=== PATIENT | male | born 1935 | race Caucasian/White ===

== ENCOUNTER 2019-08-21 15:34 | Observation (INO) | payer OTHER ==
--- NOTE | 2019-08-21 15:59 | RAD REPORT ---
EXAM DESCRIPTION: RAD - Chest Single View - 08/21/2019 3:55 pm CLINICAL HISTORY: PALPITATIONS, bradycardia COMPARISON: No comparisons TECHNIQUE: AP portable chest image was obtained 08/21/2019 3:55 pm . FINDINGS: Lungs are clear. Heart and vasculature are normal. No measurable pleural effusion and no p neumothorax. No acute bony abnormality seen. No acute aortic findings suspected. IMPRESSION: No acute cardiopulmonary process.
--- NOTE | 2019-08-21 16:12 | EKG ---
Test Date: 2019-08-21 Test Time: 15:47:23 [place]ax Room Supervisor: DAFNE MEASUREMENT RESULTS: Intervals: Rate: 74 [place]: 218 QRSD: 104 QT: 414 QTc: 459 [place]: P: 53 [place]: 218 QRS: -3 T: 63 INTERPRETIVE STATEMENTS: Sinus rhythm with 1st degree AV block with frequent and consecutive premature ventricular complexes Abnormal ECG No previous ECG available for comparison Electronically Signed On 08-21-19 16:11:27 DISTRICT MANAGER POSTAL SERVICE by Juma Blanco
[2019-08-21 16:28] LABS: Absolute Lymphocytes (CBC) 1.3 K/uL (0.7-4.9); Basophils % 0.9 % (0-1.3); Hematocrit 42.3 % (39.6-49.0); RBC Red Blood Cell Count 4.32 M/uL (4.33-5.43)
[2019-08-21 16:43] LABS: BUN Blood Urea Nitrogen 17 mg/dL (7-18); Bicarbonate 27 mmol/L (21-32); Glucose Level 104 mg/dL (74-106); Magnesium 2.3 mg/dL (1.8-2.4); NT PRO-BNP 536 pg/mL (<450); Potassium 4.1 mmol/L (3.5-5.1); Sodium Level 140 mmol/L (136-145); Troponin (Emerg Dept Use Only) < 0.02 ng/mL (0.0-0.045)
[2019-08-21] MEDS ORDERED: cloNIDine HCL 0.1 MG TAB ONE (17:29)
--- NOTE | 2019-08-21 18:45 | ER ---
Nurse's Notes [facility] [place] Name: Richard Canseco Age: 84 yrs Sex: Male : 1935 Arrival Date: 08/21/2019 Time: 15:34 Bed 6 Private MD: Diagnosis: Bradycardia, unspecified;Ventricular premature depolarization;Ventricular Bigeminy Presentation: 08/21 15:34 Presenting complaint: EMS states: SENT FROM [place] FOR BRADYCARDIA, NOT RECORDED BY EMS. bp Transition of care: [place] [facility]. Onset of symptoms is unknown. Risk Assessment: Do you want to hurt yourself or someone else? Patient reports no desire to harm self or others. Initial Sepsis Screen: Does the patient meet any 2 criteria? No. Patient's initial sepsis screen is negative. Does the patient have a suspected source of infection? No. Patient's initial sepsis screen is negative. Care prior to arrival: None. 15:34 Method Of Arrival: EMS: [facility] bp 15:34 Acuity: ANTONIO 3 bp Triage Assessment: 15:42 General: Appears in no apparent distress. comfortable, obese, Behavior is cooperative, bp appropriate for age, anxious. Pain: Denies pain. EENT: No deficits noted. Neuro: No deficits noted. Cardiovascular: Rhythm is sinus rhythm. Respiratory: No deficits noted. GI: No signs and/or symptoms were reported involving the gastrointestinal system. : No deficits noted. Derm: No deficits noted. Musculoskeletal: No deficits noted. Circulation, motion, and sensation intact. Range of motion:. Historical: - Allergies: 15:42 No Known Allergies; bp - Home Meds: 15:42 finasteride 5 mg oral tab 1 tab once daily [Active]; levothyroxine 200 mcg tab 1 tab bp once daily [Active]; trazodone 50 mg Oral tab 1 tab nightly [Active]; clonidine HCl 0.1 mg Oral tab 1 tab 2 times per day [Active]; gabapentin 400 mg oral cap 1 cap 3 times per day [Active]; verapamil 240 mg Oral C24P 1 cap twice a day [Active]; - PMHx: 15:42 Thyroid problem; Depression; Anxiety; GERD; Hypertension; bp - Immunization history:: Adult Immunizations up to date. - Coronavirus screen:: The patient has NOT traveled to [place], [place], or [place] in the past 14 days. The patient has NOT had contact with known/suspected case of Coronavirus? Proceed with normal triage procedures. - Social history:: Smoking status: Patient denies any tobacco usage or history of. - Family history:: not pertinent. - Ebola Screening: : No symptoms or risks identified at this time. - Hospitalizations: : No recent hospitalization is reported. Screenin:51 Abuse screen: Denies threats or abuse. Denies injuries from another. Nutritional bp screening: No deficits noted. Tuberculosis screening: No symptoms or risk factors identified. Fall Risk None identified. Assessment: 15:42 General: SEE TRIAGE NOTE. bp 17:00 Reassessment: PT REMAINS ASYMPTOMATIC, LABS IN PROCESS. bp 18:00 Reassessment: REPEAT EKG COMPLETED. INCREASED PVC NOTED ON MONITOR BUT PT DENIES ACUTE bp S/S. RESULTS PENDING FOR DISPO. NO NOTED IMPROVEMENT IN PT HTN AFTER CLONIDINE ADMIN. 18:40 Reassessment: ADMIT INITIATED FOR TELE. bp 19:34 General: Appears in no apparent distress. comfortable, Behavior is calm, cooperative, jd3 appropriate for age. Pain: Denies pain. Neuro: Level of Consciousness is awake, alert, obeys commands, Oriented to person, place, time, situation. Cardiovascular: Denies chest pain, Capillary refill < 3 seconds Patient's skin is warm and dry. Rhythm is irregular. Respiratory: Airway is patent Respiratory effort is even, unlabored, Respiratory pattern is regular, symmetrical, Denies cough, shortness of breath. GI: No signs and/or symptoms were reported involving the gastrointestinal system. Patient currently denies diarrhea, nausea, vomiting. : No signs and/or symptoms were reported regarding the genitourinary system. EENT: No signs and/or symptoms were reported regarding the EENT system. Derm: Skin is intact, Skin is dry, Skin is normal, Skin temperature is warm. Musculoskeletal: Circulation, motion, and sensation intact. Range of motion: intact in all extremities. 19:34 Reassessment: awaiting room assignment for admission. jd3 20:20 Reassessment: Patient appears in no apparent distress at this time. Patient and/or jd3 family updated on plan of care and expected duration. Pain level reassessed. Patient is alert, oriented x 3, equal unlabored respirations, skin warm/dry/pink. Patient denies pain at this time. Vital Signs: 15:42 BP 180 / 96; Pulse 73; Resp 27; Temp 98; Pulse Ox 95% ; Weight 113.4 kg; Height 6 ft. 2 bp in. (187.96 cm); 16:07 BP 161 / 86; Pulse 70; Resp 23; Pulse Ox 95% ; bp 17:11 BP 160 / 86; Pulse 92; Resp 18; Pulse Ox 96% ; bp 18:00 BP 145 / 83; Pulse 69; Resp 11; Pulse Ox 99% ; bp 18:30 BP 177 / 69; Pulse 75; Resp 17; Pulse Ox 99% ; bp 19:25 BP 180 / 73; Pulse 74; Resp 18 S; Pulse Ox 98% on R/A; Pain 0/10; jd3 15:42 Body Mass Index 32.10 (113.40 kg, 187.96 cm) bp ED Course: 15:34 Patient arrived in ED. bp 15:35 Triage completed. bp 15:36 Dc Vargas MD is Attending Physician. rn 15:42 Arm band placed on. bp 15:51 Patient has correct armband on for positive identification. Call light in reach. Side bp rails up X2. Adult w/ patient. 15:55 XRAY Chest (1 view) In Process Unspecified. EDMS 15:57 EKG done, by radiologic technology instructor. reviewed by Dc Vargas MD. at1 16:07 Jose Doyle, RN is Primary Nurse. bp 16:10 Inserted saline lock: 20 gauge in right antecubital area, using aseptic technique. bp Blood collected. 17:22 EKG done, by ED staff, reviewed by Dc Vargas MD. aa5 18:28 attempted transfer to [facility], pt denied due to no beds at this time, per Linda Brown. 18:38 Coco Montes MD is Hospitalizing Provider. rn 20:19 No provider procedures requiring assistance completed. Patient admitted, IV remains in jd3 place. Administered Medications: 17:23 Drug: cloNIDine 0.1 mg Route: PO; bp 18:39 Follow up: Response: No adverse reaction bp Outcome: 18:41 Decision to Hospitalize by Provider. rn 20:19 Admitted to Tele accompanied by tech, via wheelchair, room 422, with chart, Report jd3 called to Velma SALAZAR 20:19 Condition: stable 20:19 Instructed on the need for admit, Demonstrated understanding of instructions. 20:20 Patient left the ED. jd3 Signatures: Dispatcher [employer] EDMS Elizabet Gamble Roman, MD MD rn Calderon, Audri, RN RN [email or web address] Amanda Loja, marketer EKG Tat1 Fredrick Diaz RN RN Jose Ryan RN RN bp Corrections: (The following items were deleted from the chart) 18:40 18:00 Reassessment: REPEAT EKG COMPLETED. INCREASED PVC NOTED ON MONITOR BUT PT DENIES bp ACUTE S/S. RESULTS PENDING FOR DISPO bp 18:42 18:00 BP 177 / 69; Pulse 75bpm; Resp 17bpm; Pulse Ox 99%; bp bp
--- NOTE | 2019-08-21 18:48 | EDPHYS ---
Physician Documentation [facility] Name: Richard Canseco Age: 84 yrs Sex: Male : 1935 Arrival Date: 08/21/2019 Time: 15:34 Bed 6 Private MD: ED Physician Dc Vargas HPI: 08/21 16:32 This 84 yrs old Male presents to ER via EMS with complaints of bradycardia. rn 16:32 Sent from clinic for bradycardia, patient states feels fine, asymptomatic, reports his rn monitor at home showed low heart rate so didn't take BP med today, in clinic showed HR in 30s, EMS reports upon arrival was in 30s on monitor but ECG showed HR in 70s with frequent PVCs. No syncope/chest pain/sob. . Severity of symptoms:. The patient has not experienced similar symptoms in the past. The patient has been recently seen by a physician:. Historical: - Allergies: 15:42 No Known Allergies; bp - Home Meds: 15:42 finasteride 5 mg oral tab 1 tab once daily [Active]; levothyroxine 200 mcg tab 1 tab bp once daily [Active]; trazodone 50 mg Oral tab 1 tab nightly [Active]; clonidine HCl 0.1 mg Oral tab 1 tab 2 times per day [Active]; gabapentin 400 mg oral cap 1 cap 3 times per day [Active]; verapamil 240 mg Oral C24P 1 cap twice a day [Active]; - PMHx: 15:42 Thyroid problem; Depression; Anxiety; GERD; Hypertension; bp - Immunization history:: Adult Immunizations up to date. - Coronavirus screen:: The patient has NOT traveled to [place], [place], or [place] in the past 14 days. The patient has NOT had contact with known/suspected case of Coronavirus? Proceed with normal triage procedures. - Social history:: Smoking status: Patient denies any tobacco usage or history of. - Family history:: not pertinent. - Ebola Screening: : No symptoms or risks identified at this time. - Hospitalizations: : No recent hospitalization is reported. ROS: 16:32 Constitutional: Negative for fever, chills, and weight loss, Eyes: Negative for injury, rn pain, redness, and discharge, Neck: Negative for injury, pain, and swelling, Cardiovascular: Negative for chest pain, palpitations, and edema, Respiratory: Negative for shortness of breath, cough, wheezing, and pleuritic chest pain, Abdomen/GI: Negative for abdominal pain, nausea, vomiting, diarrhea, and constipation, MS/Extremity: Negative for injury and deformity, Skin: Negative for injury, rash, and discoloration, Neuro: Negative for headache, weakness, numbness, tingling, and seizure. Exam: 16:32 Constitutional: This is a well developed, well nourished patient who is awake, alert, rn and in no acute distress. Head/Face: Normocephalic, atraumatic. Eyes: Pupils equal round and reactive to light, extra-ocular motions intact. Lids and lashes normal. Conjunctiva and sclera are non-icteric and not injected. Cornea within normal limits. Periorbital areas with no swelling, redness, or edema. Cardiovascular: Regular rate, irregular rhythm. No pulse deficits. Respiratory: No increased work of breathing, no retractions or nasal flaring. Abdomen/GI: soft, non-tender MS/ Extremity: Pulses equal, no cyanosis. Neurovascular intact. Full, normal range of motion. Equal circumference. Neuro: Awake and alert, GCS 15, oriented to person, place, time, and situation. Motor strength 5/5 in all extremities. Sensory grossly intact. Cerebellar exam normal. Vital Signs: 15:42 BP 180 / 96; Pulse 73; Resp 27; Temp 98; Pulse Ox 95% ; Weight 113.4 kg; Height 6 ft. 2 bp in. (187.96 cm); 16:07 BP 161 / 86; Pulse 70; Resp 23; Pulse Ox 95% ; bp 17:11 BP 160 / 86; Pulse 92; Resp 18; Pulse Ox 96% ; bp 18:00 BP 145 / 83; Pulse 69; Resp 11; Pulse Ox 99% ; bp 18:30 BP 177 / 69; Pulse 75; Resp 17; Pulse Ox 99% ; bp 19:25 BP 180 / 73; Pulse 74; Resp 18 S; Pulse Ox 98% on R/A; Pain 0/10; jd3 15:42 Body Mass Index 32.10 (113.40 kg, 187.96 cm) bp MDM: 15:36 Patient medically screened. rn 17:38 Differential Diagnosis bradycardia. rn 18:37 Data reviewed: vital signs, nurses notes, lab test result(s), EKG, radiologic studies, rn plain films, and as a result, I will admit patient. Counseling: I had a detailed discussion with the patient and/or guardian regarding: the historical points, exam findings, and any diagnostic results supporting the discharge/admit diagnosis, lab results, radiology results, the need for further work-up and treatment in the hospital. Response to treatment: the patient's symptoms have mildly improved after treatment, and as a result, I will admit patient. Admission orders: after a detailed discussion of the patient's condition and case, the admit orders are written by me. ED course: No beds available for transfer to [place]. Admitted to Dr. Montes for bradycardia and bigeminy. . 08/21 15:42 Order name: Basic Metabolic Panel; Complete Time: 17:08/21 15:42 Order name: CBC with Diff; Complete Time: 17:11 08/21 15:42 Order name: Magnesium; Complete Time: 17:08/21 15:42 Order name: NT PRO-BNP; Complete Time: 17:08/21 15:42 Order name: Troponin (emerg Dept Use Only); Complete Time: 17:08/21 15:42 Order name: XRAY Chest (1 view); Complete Time: 16:02 rn 08/21 15:42 Order name: EKG; Complete Time: 15:43 rn 08/21 15:42 Order name: Cardiac monitoring; Complete Time: 15:55 rn 08/21 15:42 Order name: EKG - Nurse/Tech; Complete Time: 15:55 08/21 15:42 Order name: IV Saline Lock; Complete Time: 15:57 08/21 15:42 Order name: Labs collected and sent; Complete Time: 15:55 08/21 15:42 Order name: O2 Per Protocol; Complete Time: 15:58 08/21 17:12 Order name: EKG; Complete Time: 17:12 rn 08/21 15:42 Order name: O2 Sat Monitoring; Complete Time: 15:58 08/21 17:12 Order name: EKG - Nurse/Tech; Complete Time: 17:24 rn Administered Medications: 17:23 Drug: cloNIDine 0.1 mg Route: PO; bp 18:39 Follow up: Response: No adverse reaction bp Disposition: 08/21/19 18:41 Hospitalization ordered by Coco Montes for Observation. Preliminary diagnosis are Bradycardia, unspecified, Ventricular premature depolarization, Ventricular Bigeminy. - Bed requested for Telemetry/MedSurg (observation). - Status is Observation. jd3 - Condition is Stable. - Problem is new. - Symptoms have improved. Signatures: Dispatcher [employer] EDMS Zaira Monreal RN RN mw Dc Vargas MD MD rn Davies, Jonathon, RN RN jd3 Peltier, Brian, RN RN bp Corrections: (The following items were deleted from the chart) 19:33 18:41 Hospitalization Ordered by Coco Montes MD for Observation. Preliminary diagnosis mw is Bradycardia, unspecified; Ventricular premature depolarization; Ventricular Bigeminy. Bed requested for Telemetry/MedSurg (observation). Status is Observation. Condition is Stable. Problem is new. Symptoms have improved. rn 20:20 19:33 08/21/2019 18:41 Hospitalization Ordered by Coco Montes MD for Observation. jd3 Preliminary diagnosis is Bradycardia, unspecified; Ventricular premature depolarization; Ventricular Bigeminy. Bed requested for Telemetry/MedSurg (observation). Status is Observation. Condition is Stable. Problem is new. Symptoms have improved. kristen
[2019-08-21] MEDS ORDERED: NA CHLORIDE 0.9% 1,000 ML IV SCH (20:29)
[2019-08-21] MEDS ORDERED: ACETAMINOPHEN 500 MG TAB PO PRN (20:29)
--- NOTE | 2019-08-21 20:32 | P.HP ---
Certification for Inpatient Patient admitted to: Observation With expected LOS: <2 Midnights Practitioner: I am a practitioner with admitting privileges, knowledge of patient current condition, hospital course, and medical plan of care. Services: Services provided to patient in accordance with Admission requirements found in Title 42 Section 412.3 of the Code of Federal Regulations Patient History Date of Service: 08/21/19 Reason for admission: Abnormal heart rhythm History of Present Illness: 84-year-old gentleman with a history of hypertension, hypothyroidism, BPH was referred to the emergency department for bradycardia and bigeminy noted on this EKG done in his PCPs office today. Patient denies any complain. He denied any palpitation or shortness of breath or chest pain. He is on verapamil and clonidine for blood pressure. He apparently noted his heart slows down when he takes his blood pressure medications. His systolic blood pressure was quite elevated in the ED, up to the 180s and it did not respond much to oral clonidine. His EKG reveals bigeminy and first- degree AV block. Patient is placed under observation for further evaluation. Allergies No Known Allergies Allergy (Unverified 08/21/19 19:34) Home Medications: Finasteride [Proscar*] 5 mg PO DAILY 08/21/19 Fluticasone Furoate [Arnuity Ellipta] 50 mcg IH BID 08/21/19 Gabapentin [Neurontin*] 400 mg PO TID 08/21/19 Levothyroxine Sodium [Synthroid] 200 mcg PO DAILY 08/21/19 Multivitamin [Multivitamins] 1 each PO DAILY 08/21/19 Trazodone HCl 50 mg PO BEDTIME PRN PRN 08/21/19 guaiFENesin [Mucus Relief ER] 600 mg PO Q12HP PRN 08/21/19 Amlodipine [Norvasc*] 10 mg PO DAILY #30 tab 08/22/19 Doxazosin [Cardura*] 2 mg PO BEDTIME #30 tab 08/22/19 - Past Medical/Surgical History -: Back pain -: Hypertension -: Hypothyroidism -: Depressive disorder -: Hearing loss -: Anxiety disorder -: Hypercholesterolemia -: GERD -: Faust's palsy -: Hypothyroidism -: BPH -: Peripheral neuropathy - Family History Family History: Reviewed- Non-Contributory - Family History Father -: Heart disease Mother -: Heart disease - Social History Alcohol use: No CD- Drugs: No Place of Residence: Home Review of Systems Other: General: No fever, no malaise, no unintentional weight loss. Eyes: No eye discharge, Respiratory: No cough, no shortness of breath. CVS: No chest pain, no palpitation, no lightheadedness. GI: No abdominal pain, no nausea no vomit, no constipation, no diarrhea. Genitourinary: No dysuria, no urinary frequency, no incontinence, no hematuria. Musculoskeletal: No joint pains, or joint swelling, no gait instability. Neurology: No headache, no asymmetric weakness, no problem with swallowing. Except as documented, all other systems reviewed and negative. Physical Examination - Physical Exam General: Alert, In no apparent distress, Oriented x3 HEENT: PERRLA, Mucous membr. moist/pink, EOMI, Sclerae nonicteric Neck: Supple, JVD not distended, No Thyromegaly Respiratory: Clear to auscultation bilaterally, Normal air movement Cardiovascular: No edema, Normal S1 S2, Other (Bradycardia), Irregular heart rate/rhythm Gastrointestinal: Normal bowel sounds, Soft and benign, Non-distended, No tenderness Musculoskeletal: No swelling, No erythema Integumentary: No rashes, No erythema Neurological: Normal speech, Normal strength at 5/5 x4 extr - Studies Laboratory Data (last 24 hrs) 08/21/19 16:10: WBC 5.7, Hgb 14.3, Hct 42.3, Plt Count 210 08/21/19 16:10: Sodium 140, Potassium 4.1, BUN 17, Creatinine 1.16, Glucose 104 , Magnesium 2.3 Assessment and Plan - Problems (Diagnosis) (1) Uncontrolled hypertension Status: Acute (2) Bradycardia Status: Acute (3) PVCs (premature ventricular contractions) Status: Acute (4) Hypothyroidism Status: Chronic - Plan Place patient under observation. Replace verapamil with amlodipine Hold clonidine given bradycardia. Low-dose metoprolol Hydralazine p.r.n. for BP spikes. Obtain an echocardiogram Cardiology consult Check TSH Continue home dose Synthroid - Advance Directives Does patient have a Living Will: No Does patient have a Durable POA for Healthcare: No
[2019-08-21] MEDS ORDERED: HYDRALAZINE HCL 20 MG/ML VIAL IV PRN (20:48)
[2019-08-21 21:47] VITALS: BMI 32.1
[2019-08-21] MEDS ORDERED: TRAZODONE 50 MG TABLET PO PRN (22:02)
[2019-08-21] MEDS ORDERED: GUAIFENESIN 600 MG SA TAB PO PRN (22:02)
[2019-08-21] MEDS: METOPROLOL TAR 25 MG TAB PO SCH (22:07)
[2019-08-21] MEDS: GABAPENTIN 400 MG CAP PO SCH (23:02)
[2019-08-22 04:20] LABS: Absolute Lymphocytes (CBC) 2.2 K/uL (0.7-4.9); Basophils % 0.9 % (0-1.3); Hematocrit 41.3 % (39.6-49.0); Lymphocytes % 30.5 % (15.3-44.8); MPV 9.9 fL (7.6-11.3); RBC Red Blood Cell Count 4.24 M/uL (4.33-5.43)
[2019-08-22 04:28] VITALS: O2SAT 95
[2019-08-22 05:09] LABS: Albumin 3.1 g/dL (3.4-5.0); Bilirubin Total 0.5 mg/dL (0.2-1.0); Magnesium 2.2 mg/dL (1.8-2.4); Phosphorus 3.7 mg/dL (2.5-4.9); Potassium 4.4 mmol/L (3.5-5.1); Protein, Total 6.2 g/dL (6.4-8.2); Thyroid Stimulating Hormone 3.24 uIU/mL (0.360-3.740)
[2019-08-22] MEDS: METOPROLOL TAR 25 MG TAB PO SCH (06:00)
[2019-08-22] MEDS ORDERED: LEVOTHYROXINE SOD 0.1 MG TAB PO SCH (07:30)
[2019-08-22] MEDS ORDERED: DOXAZOSIN 2 MG TAB PO ONE (07:49)
[2019-08-22 08:07] VITALS: TEMP 97.1
[2019-08-22] MEDS ORDERED: FINASTERIDE 5 MG TAB PO SCH (09:00)
[2019-08-22] MEDS ORDERED: AMLODIPINE 10 MG TAB PO SCH (09:00)
[2019-08-22] MEDS ORDERED: FLUTICASONE FUROATE 50 MCG IH SCH (09:00)
[2019-08-22] MEDS ORDERED: ENOXAPARIN 40 MG/0.4 ML SQ SCH (09:00)
[2019-08-22] MEDS ORDERED: MULTIVIT W/ MINERAL TAB PO SCH (09:00)
--- NOTE | 2019-08-22 09:11 | EKG ---
Test Date: 2019-08-21 Test Time: 17:19:31 [place] Operator: USHA MEASUREMENT RESULTS: Intervals: Rate: 81 NV: 210 QRSD: 102 QT: 398 QTc: 462 [place]: P: 49 NV: 210 QRS: 8 T: 61 INTERPRETIVE STATEMENTS: Sinus rhythm with 1st degree AV block with frequent premature ventricular complexes in a pattern of bigeminy Otherwise normal ECG Compared to ECG 08/21/2019 15:47:23 No significant changes Electronically Signed On 08-22-19 09:11:33 CHIEF SALES OFFICER by Juma Blanco
[2019-08-22] MEDS: GABAPENTIN 400 MG CAP PO SCH (10:45)
--- NOTE | 2019-08-22 11:56 | ECHO ---
HEIGHT: 6 ft 2 in WEIGHT: 250 lb 0 oz DATE OF STUDY: 08/22/[address]: johnathon flores 2-DIMENSIONAL: YES M.MODE: YES DOPPLER: YES COLOR FLOW: YES TDS: NO PORTABLE: NO DEFINITY: NO BUBBLE STUDY: NO DIAGNOSIS: PREMATURE VENTRICULAR COMPLEXES CARDIAC HISTORY: CATHERIZATION: NO SURGERY: NO PROSTHETIC VALVE: NO PACEMAKER: NO MEASUREMENTS (cm) DIASTOLIC (NORMALS) SYSTOLIC (NORMALS) IVSd 1.2 (0.6-1.2) LA Diam 3.7 (1.9-4.0) LVEF 68% LVIDd 4.7 (3.5-5.7) LVIDs 2.9 (2.0-3.5) %FS 38% LVPWd 1.0 (0.6-1.2) Ao Diam 3.1 (2.0-3.7) 2 DIMENSIONAL ASSESSMENT: RIGHT ATRIUM: NORMAL LEFT ATRIUM: NORMAL RIGHT VENTRICLE: NORMAL LEFT VENTRICLE: NORMAL TRICUSPID VALVE: NORMAL MITRAL VALVE: NORMAL PULMONIC VALVE: NORMAL AORTIC VALVE: SCLEROSIS PERICARDIAL EFFUSION: NONE AORTIC ROOT: NORMAL LEFT VENTRICULAR WALL MOTION: NORMAL. DOPPLER/COLOR FLOW: MILD AORTIC, MITRAL AND TRICUSPID REGURGITATION. NORMAL RIGHT VENTRICULAR SYSTOLIC PRESSURE. NO AORTIC STENOSIS. COMMENTS: NORMAL LEFT VENTRICULAR EJECTION FRACTION. AORTIC SCLEROSIS WITH NO AORTIC STENOSIS. MILD AORTIC, MITRAL AND TRICUSPID REGURGITATION. TECHNOLOGIST: MIREILLE LAU
--- NOTE | 2019-08-22 12:10 | CON ---
Identification: 84-year-old man. History Of Present Illness: Mr. Canseco has been treated for hypertension for some time. The doctors at the [facility] have been changing medicines just about every time they see him. 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 Throughout all that, he does not have any symptoms of arrhythmia, but the [facility] sent him to our hospital because he had frequent PVCs and his heart rate was rather slow. Outpatient Medications: Had been verapamil, trazodone, multivitamin, levothyroxine, gabapentin, Arnuity, finasteride, clonidine, and guaifenesin. Physical Examination: General: Mr. Canseco is alert, oriented, pleasant, not in distress, little hard of hearing. 6 feet 2 inches, 250 pounds, obese. Lungs: Clear. Heart: Within normal limits, although there are frequent premature beats with a full compensatory pause. Abdomen: Soft. Extremities: Trace edema. Distal pulses palpable but diminished. The patient does not have diabetes, dyslipidemia, never had myocardial infarction, stroke, vascular disease, not having chest pain, shortness of breath , syncope, palpitations, or any other cardiac symptoms. His EKG shows sinus rhythm with frequent PVCs. No infarction, injury, or ischemia. Impression: The premature ventricular contractions, if he has normal ejection fraction, should be ignored. There has been no ventricular tachycardia. He is asymptomatic. Our blood pressure medicine selection always should be focused on things that do not slow his heart rate. He has sinus node dysfunction and may well end up needing a pacemaker, but I think if we avoid verapamil, diltiazem, clonidine, beta blockers, digoxin, he probably can go a few years without getting a pacemaker. I would think that a combination of amlodipine with an alpha erin might do good such as amlodipine and Cardura. He does not need IV fluid and if his echo shows normal ejection fraction he can be discharged. BECKY/QASIM Voice ID: [id number] Report ID: [id number] MTDD
[2019-08-22 12:22] VITALS: BP 133/62
--- NOTE | 2019-08-23 02:53 | DS ---
Date of Discharge: 08/22/2019 Consultants: Dr. Blanco with Cardiology . Discharge Diagnoses: 1.Uncontrolled hypertension. 2.Bradycardia. 3.Premature ventricular contractions. 4.Hypothyroidism. 5.Obesity. Hospital Course: Patient is an 84-year-old male with past medical history of hypertension, hypothyro idism, depression, hypercholesterolemia, GERD, Faust's palsy, comes in with abnormal heart rhythms dir ectly from the [facility]. They noted his heart rate to be in the 30s in the ER and at our facility negin loyola was found to be in bigeminy and have PVCs. Patient was admitted for further observation. Dr. Blanco was consulted. The patient's workup included electrolytes that were within normal limits. T SH was also normal. His white blood cell count was also within normal limits. Echocardiogram was do ne, which showed an ejection fraction of 68%, aortic sclerosis with no aortic stenosis mild aortic mi tral and tricuspid regurgitation. The patient's chest x-ray showed no acute cardiopulmonary process. The patient's blood pressure medications were adjusted. He was taken off clonidine and verapamil d ue to the bradycardia, was started on Cardura and amlodipine. The patient's blood pressure responded well despite rebounding was in the 130s when he was discharged. Patient denies any dizziness, light headedness, or any syncopal type episodes. No chest pain or shortness of breath. Dr. Blanco recomme nded follow up as an outpatient for continued monitoring. He may eventually need a pacemaker however at this time is not indicated. Patient was doing well, he was then cleared for discharge. His echo cardiogram was within normal limits as above. He was discharged home in a stable condition. Activity: As tolerated. Medications: As per medication reconciliation list. Patient is to stop his verapamil and clonidine. Will be on amlodipine and Cardura. Followup: Follow up with primary care physician at the [facility] in 2-3 days, follow up with burning machine operator, Dr. Blanco in 2 weeks. Return to ER for worsening condition. Physical Examination: General: Awake, alert, and oriented x3. No acute distress, obese male. CV: S1, S2. Respiratory: Moving air well bilaterally. Abdomen: Abdomen is soft, nontender, nondistended. Positive bowel sounds. Extremities: No clubbing, cyanosis, edema. Neurologic: Nonfocal. SA/MODL Voice ID: [id number] Report ID: [id number]
== END 2019-08-22 13:55 | disposition home or self-care (01) ==
LOC: ER 15:34 → ERHOLD 18:30 → 4TH 20:02
PROVIDERS: ADMIT Family Medicine; ATTEND Family Medicine
DX: I49.3 Ventricular premature depolarization (principal); R00.1 Bradycardia, unspecified; I10 Essential (primary) hypertension; E03.9 Hypothyroidism, unspecified; N40.0 Benign prostatic hyperplasia without lower urinary tract symptoms; F41.9 Anxiety disorder, unspecified; E78.00 Pure hypercholesterolemia, unspecified; G51.0 Bell's palsy; G62.9 Polyneuropathy, unspecified; E66.9 Obesity, unspecified; Z68.32 Body mass index [BMI] 32.0-32.9, adult
CPT/HCPCS: 93005 ×2; 93306; 85025 ×2; 80048; 36415; 83735 ×2; 84100; 84443; 84484; 80053; 83880; 71045; 94760; 99285; J1650; J7030; G0378 ×3

== ENCOUNTER 2020-06-22 09:53 | Observation (INO) | payer OTHER ==
[2020-06-22] MEDS ORDERED: NA CHLORIDE 0.9% 0 ML ONE (10:18)
[2020-06-22] MEDS ORDERED: NA CHLORIDE 0.9% 500 ML ONE (10:21)
[2020-06-22 10:39] LABS: Absolute Lymphocytes (CBC) 0.9 K/uL (0.7-4.9); Basophils % 0.8 % (0-1.3); Hematocrit 45.9 % (39.6-49.0); MPV 8.7 fL (7.6-11.3); RBC Red Blood Cell Count 4.84 M/uL (4.33-5.43)
--- NOTE | 2020-06-22 11:27 | RAD REPORT ---
EXAM DESCRIPTION: RAD - Chest Single View - 06/22/2020 10:38 am CLINICAL HISTORY: COVID + Chest pain. COMPARISON: Chest Single View dated 08/21/2019 FINDINGS: Portable technique limits examination quality. Mild interstitial opacities are seen along the periphery of both lungs suggesting mild bilateral bron chitis. The heart is moderately prominent in size with a tortuous thoracic aorta. No displaced fractu res.
[2020-06-22 12:36] LABS: CKMB Creatine Kinase MB 1.8 ng/mL (0.3-3.6); Potassium 3.6 mmol/L (3.5-5.1)
[2020-06-22 12:47] LABS: Urine Bacteria <20 /HPF (NONE SEEN); Urine RBC <5 /HPF (NONE SEEN)
[2020-06-22 12:47] LABS: Urine Blood NEGATIVE (NEG); Urine Glucose NEGATIVE (NEG); Urine Protein NEGATIVE (NEG); Urine pH 7.5 (5.0-7.0)
[2020-06-22 12:48] LABS: Urine Mucus 1+ /HPF (NONE SEEN)
--- NOTE | 2020-06-22 13:13 | EDPHYS ---
Physician Documentation [facility] Name: Jared Canseco Age: 85 yrs Sex: Male : 1935 Arrival Date: 06/22/2020 Time: 09:56 Bed 20 Private MD: ED Physician Dc Vargas HPI: 06/22 11:31 This 85 yrs old Male presents to ER via Wheelchair with complaints of Urinary rn Problem. 11:31 Reports decreased urinary output, feels like might be dehydrated, + diagnosed with rn COVID on Tuesday. Reports no PO intake today. No focal pain, no vomiting, no diarrhea. No sob. . Onset: The symptoms/episode began/occurred at an unknown time. Severity of symptoms: At their worst the symptoms were mild in the emergency department the symptoms are unchanged. The patient has not experienced similar symptoms in the past. The patient has been recently seen by a physician:. Historical: - Allergies: 10:00 No Known Allergies; sv - PMHx: 10:00 Anxiety; Depression; GERD; Hypertension; Thyroid problem; sv - Immunization history:: Adult Immunizations up to date. - Social history:: Smoking status: Patient denies any tobacco usage or history of. - Family history:: not pertinent. - Hospitalizations: : No recent hospitalization is reported. ROS: 11:31 Constitutional: Negative for fever, chills, and weight loss, Eyes: Negative for injury, rn pain, redness, and discharge, Neck: Negative for injury, pain, and swelling, Cardiovascular: Negative for chest pain, palpitations, and edema, Respiratory: Negative for wheezing, and pleuritic chest pain, Abdomen/GI: Negative for abdominal pain, nausea, vomiting, diarrhea, and constipation, : + decreased UOP MS/Extremity: Negative for injury and deformity, Skin: Negative for injury, rash, and discoloration, Neuro: Negative for headache, numbness, tingling, and seizure. Exam: 11:31 Constitutional: This is a well developed, well nourished patient who is awake, alert, rn and in no acute distress. Head/Face: Normocephalic, atraumatic. ENT: dry MM Neck: No Meningismus. Cardiovascular: Regular rate and rhythm. No pulse deficits. Respiratory: Mild tachypnea Abdomen/GI: soft, non-tender Skin: Warm, dry, + tenting of skin MS/ Extremity: Pulses equal, no cyanosis. Neuro: Awake and alert, GCS 15 Vital Signs: 09:59 BP 136 / 85; Pulse 91; Resp 26; Pulse Ox 95% ; Pain 0/10; ss 10:33 BP 128 / 71; Pulse 85; Resp 24; Temp 98; Pulse Ox 96% on R/A; sv 11:13 BP 113 / 83; Pulse 95; Resp 25; Pulse Ox 97% on R/A; sv 12:12 BP 125 / 94; Pulse 64; Resp 20; Pulse Ox 97% on R/A; sv 13:00 BP 122 / 89; Pulse 75; Resp 25; Pulse Ox 96% on R/A; sv 14:00 BP 136 / 87; Pulse 87; Resp 24; Pulse Ox 95% on R/A; sv MDM: 09:57 Patient medically screened. rn 13:09 Differential Diagnosis dehydration, COVID pneumonia, acute kidney injury. Data rn reviewed: vital signs, nurses notes, lab test result(s), radiologic studies, plain films, and as a result, I will admit patient. Counseling: I had a detailed discussion with the patient and/or guardian regarding: the historical points, exam findings, and any diagnostic results supporting the discharge/admit diagnosis, lab results, radiology results, the need for further work-up and treatment in the hospital. Response to treatment: the patient's symptoms have mildly improved after treatment, and as a result, I will admit patient. Admission orders: after a detailed discussion of the patient's condition and case, the admit orders are written by me. ED course: Admitted to Dr. Richards for dehydration, COVID pneumonia. . 06/22 10:04 Order name: Blood Culture Adult (2) rn 06/22 10:04 Order name: BMP; Complete Time: 12:52 rn 06/22 10:04 Order name: CBC with Diff; Complete Time: 11:28 rn 06/22 10:04 Order name: Ckmb; Complete Time: 12:52 rn 06/22 10:04 Order name: CPK; Complete Time: 12:52 rn 06/22 10:04 Order name: NT PRO-BNP; Complete Time: 12:52 rn 06/22 10:04 Order name: Urine Microscopic Only; Complete Time: 13:04 rn 06/22 12:36 Order name: Urine Dipstick--Ancillary (enter results); Complete Time: 12:52 eb 06/22 14:39 Order name: C-Reactive Protein EDMS 06/22 14:39 Order name: C-Reactive Protein; Complete Time: 10:12 EDMS 06/22 14:39 Order name: CBC with Automated Diff EDMS 06/22 14:39 Order name: CBC with Automated Diff; Complete Time: 10:12 EDMS 06/22 14:39 Order name: Comprehensive Metabolic Panel EDMS 06/22 14:39 Order name: Comprehensive Metabolic Panel; Complete Time: 10:12 EDMS 06/22 10:04 Order name: XRAY CXR (1 view); Complete Time: 11:28 rn 06/22 14:39 Order name: D-Dimer EDMS 06/22 14:39 Order name: D-Dimer; Complete Time: 10:12 EDMS 06/22 14:39 Order name: Ferritin EDMS 06/22 14:39 Order name: Ferritin; Complete Time: 10:12 EDMS 06/22 14:39 Order name: Lipid Profile EDMS 06/22 14:39 Order name: Lipid Profile; Complete Time: 10:12 EDMS 06/22 17:37 Order name: Liver (Hepatic) Function; Complete Time: 10:12 EDMS 06/22 17:37 Order name: T3 Free; Complete Time: 10:12 EDMS 06/22 17:37 Order name: T4,Total; Complete Time: 10:12 EDMS 06/22 17:37 Order name: T4 Free; Complete Time: 10:12 EDMS 06/22 17:37 Order name: Magnesium; Complete Time: 10:12 EDMS 06/22 17:37 Order name: Thyroid Stimulating Hormone; Complete Time: 10:12 EDMS 06/23 05:06 Order name: Manual Differential; Complete Time: 10:12 EDMS 06/23 05:33 Order name: T3, Total; Complete Time: 10:12 EDMS 06/22 10:04 Order name: EKG; Complete Time: 10:05 rn 06/22 10:04 Order name: Cardiac monitoring; Complete Time: 10:14 rn 06/22 10:04 Order name: EKG - Nurse/Tech; Complete Time: 10:15 rn 06/22 10:04 Order name: IV Saline Lock; Complete Time: 10:28 rn 06/22 10:04 Order name: Labs collected and sent; Complete Time: 10: rn 06/22 10:04 Order name: O2 Per Protocol; Complete Time: 10: rn 06/22 10:04 Order name: O2 Sat Monitoring; Complete Time: 10: rn 06/22 10:04 Order name: Urine Dipstick-Ancillary (obtain specimen); Complete Time: 12:36 rn 06/22 11:47 Order name: Labs - recollect needed; Complete Time: 12:00 sv 06/22 14:39 Order name: CONS Pharmacy Consult EDMS 06/22 14:39 Order name: CONS Physician Consult EDMS 06/22 14:39 Order name: Regular EDMS Administered Medications: 10:28 Drug: NS 0.9% 500 ml Route: IV; Rate: bolus; Site: left antecubital; sv 11:15 Follow up: Response: No adverse reaction; IV Status: Completed infusion; IV Intake: sv 500ml 14:23 Drug: NS 0.9% 1000 ml Route: IV; Rate: 100 ml/hr; Site: left antecubital; sv 15:01 Follow up: Response: No adverse reaction; IV Status: Infusion continued upon admission sv 14:24 Drug: Decadron - Dexamethasone 10 mg Route: IVP; Site: left antecubital; sv 15:01 Follow up: Response: No adverse reaction sv Disposition: 06/22/20 13:12 Hospitalization ordered by Milka Richards for Observation. Preliminary diagnosis are Dehydration, Coronavirus infection, unspecified, Viral pneumonia, unspecified. - Bed requested for [facility] ER HOLD. - Status is Observation. iw - Condition is Stable. - Problem is new. - Symptoms are unchanged. Signatures: Dispatcher [employer] EDPR Elizabet Gamble Stephanie, RN RN sv Janel Velazquez RN RN iw Dc Vargas MD MD rn Smirch, Shelby, RN RN ss Corrections: (The following items were deleted from the chart) 14:54 13:12 Hospitalization Ordered by Milka Richards MD for Observation. Preliminary ss diagnosis is Dehydration; Coronavirus infection, unspecified; Viral pneumonia, unspecified. Bed requested for Telemetry/MedSurg (observation). Status is Observation. Condition is Stable. Problem is new. Symptoms are unchanged. rn 06/23 15:27 06/22 14:54 06/22/2020 13:12 Hospitalization Ordered by Milka Richards MD for bd Observation. Preliminary diagnosis is Dehydration; Coronavirus infection, unspecified; Viral pneumonia, unspecified. Bed requested for [facility] ER HOLD. Status is Observation. Condition is Stable. Problem is new. Symptoms are unchanged. ss 06/23 15:43 15:27 06/22/2020 13:12 Hospitalization Ordered by Milka Richards MD for Observation. iw Preliminary diagnosis is Dehydration; Coronavirus infection, unspecified; Viral pneumonia, unspecified. Bed requested for Intensive Care Unit. Status is Observation. Condition is Stable. Problem is new. Symptoms are unchanged. bd 15:43 15:43 06/22/2020 13:12 Hospitalization Ordered by Milka Richards MD for Observation. iw Preliminary diagnosis is Dehydration; Coronavirus infection, unspecified; Viral pneumonia, unspecified. Bed requested for Intensive Care Unit. Status is Observation. Condition is Stable. Problem is new. Symptoms are unchanged. iw 16:42 15:43 06/22/2020 13:12 Hospitalization Ordered by Milka Richards MD for Observation. iw Preliminary diagnosis is Dehydration; Coronavirus infection, unspecified; Viral pneumonia, unspecified. Bed requested for [facility] ER HOLD. Status is Observation. Condition is Stable. Problem is new. Symptoms are unchanged. iw
--- NOTE | 2020-06-22 13:13 | ER ---
Nurse's Notes [facility] Name: Jared Canseco Age: 85 yrs Sex: Male : 1935 Arrival Date: 06/22/2020 Time: 09:56 Bed 20 Private MD: Diagnosis: Dehydration;Coronavirus infection, unspecified;Viral pneumonia, unspecified Presentation: 06/22 09:59 Chief complaint: Patient states: "I think my kidneys are failing." Pt reports decreased ss urinary output x 3 days. Diagnosed with COVID 06/13. Coronavirus screen: Client denies travel out of the [place] in the last 14 days. Ebola Screen: Patient denies exposure to infectious person. Patient denies travel to an Ebola-affected area in the 21 days before illness onset. Initial Sepsis Screen:. Onset of symptoms was June 19, 2020. 09:59 Method Of Arrival: Wheelchair ss 09:59 Acuity: ANTONIO 3 ss 09:59 Initial Sepsis Screen: Does the patient meet any 2 criteria? RR > 20 per min. HR > 90 ss bpm. Does the patient have a suspected source of infection? No. Patient's initial sepsis screen is negative. Risk Assessment: Do you want to hurt yourself or someone else? Patient reports no desire to harm self or others. 10:01 Coronavirus screen: Client denies travel out of the [place] in the last 14 days. Client sv reports previous positive COVID test result. Date of collection: June 13, 2020. Triage Assessment: 10:00 General: Appears in no apparent distress. comfortable, well groomed, well developed, sv Behavior is calm, cooperative, appropriate for age. General: Reports that he is drinking fluids with no difficulty. Pain: Denies pain. Neuro: Level of Consciousness is awake, alert, obeys commands, Oriented to person, place, time, situation, Moves all extremities. Full function Gait is steady. Respiratory: Airway is patent Respiratory effort is even, unlabored, Respiratory pattern is regular, symmetrical. : Reports decreased urination. Derm: Skin is intact, Skin is pink, warm \\T\\ dry. Musculoskeletal: Range of motion: intact in all extremities. Historical: - Allergies: 10:00 No Known Allergies; sv - PMHx: 10:00 Anxiety; Depression; GERD; Hypertension; Thyroid problem; sv - Immunization history:: Adult Immunizations up to date. - Social history:: Smoking status: Patient denies any tobacco usage or history of. - Family history:: not pertinent. - Hospitalizations: : No recent hospitalization is reported. Screenin:00 Abuse screen: Denies threats or abuse. Denies injuries from another. Nutritional sv screening: No deficits noted. Tuberculosis screening: No symptoms or risk factors identified. Fall Risk None identified. Assessment: 10:33 Reassessment: Patient appears in no apparent distress at this time. No changes from sv previously documented assessment. Patient and/or family updated on plan of care and expected duration. Pain level reassessed. Patient is alert, oriented x 3, equal unlabored respirations, skin warm/dry/pink. 11:15 Reassessment: Patient appears in no apparent distress at this time. No changes from sv previously documented assessment. Patient and/or family updated on plan of care and expected duration. Pain level reassessed. Patient is alert, oriented x 3, equal unlabored respirations, skin warm/dry/pink. 12:00 Reassessment: Patient appears in no apparent distress at this time. No changes from sv previously documented assessment. Patient and/or family updated on plan of care and expected duration. Pain level reassessed. Patient is alert, oriented x 3, equal unlabored respirations, skin warm/dry/pink. 12:37 Reassessment: Patient appears in no apparent distress at this time. No changes from sv previously documented assessment. Patient and/or family updated on plan of care and expected duration. Pain level reassessed. Patient is alert, oriented x 3, equal unlabored respirations, skin warm/dry/pink. 14:25 Reassessment: Patient appears in no apparent distress at this time. No changes from sv previously documented assessment. Patient and/or family updated on plan of care and expected duration. Pain level reassessed. Patient is alert, oriented x 3, equal unlabored respirations, skin warm/dry/pink. 15:00 Reassessment: Bedside report given to Debbie SALAZAR. sv Vital Signs: 09:59 BP 136 / 85; Pulse 91; Resp 26; Pulse Ox 95% ; Pain 0/10; ss 10:33 BP 128 / 71; Pulse 85; Resp 24; Temp 98; Pulse Ox 96% on R/A; sv 11:13 BP 113 / 83; Pulse 95; Resp 25; Pulse Ox 97% on R/A; sv 12:12 BP 125 / 94; Pulse 64; Resp 20; Pulse Ox 97% on R/A; sv 13:00 BP 122 / 89; Pulse 75; Resp 25; Pulse Ox 96% on R/A; sv 14:00 BP 136 / 87; Pulse 87; Resp 24; Pulse Ox 95% on R/A; sv ED Course: 09:56 Patient arrived in ED. rn 09:56 Dc Vargas MD is Attending Physician. rn 09:59 Angelia Tello, MARTIN is Primary Nurse. sv 09:59 Arm band placed on. sv 10:00 Patient has correct armband on for positive identification. Placed in gown. Bed in low sv position. Call light in reach. Side rails up X 1. Adult w/ patient. air sampling and monitoring on. Pulse ox on. NIBP on. Door closed. Head of bed elevated. 10:01 ED physician to see patient. sv 10:01 Triage completed. ss 10:07 EKG done, by ED staff, reviewed by Dc Vargas MD. dh3 10:10 First set of blood cultures drawn by me. sv 10:20 Second set of blood cultures drawn by me. Inserted saline lock: 20 gauge in left sv antecubital area, using aseptic technique. Blood collected. Flushed left antecubital with 5 ml normal saline. 10:29 X-ray(s) taken. sv 10:38 XRAY CXR (1 view) In Process Unspecified. EDMS 10:55 Awaiting lab results. sv 12:00 Lab(s) recollected, by me, sent to lab. sv 13:12 Milka Richards MD is Hospitalizing Provider. rn 14:25 Awaiting bed assignment. sv 14:59 No provider procedures requiring assistance completed. Patient admitted, IV remains in sv place. intact. 19:04 Primary Nurse role handed off by Angelia Tello, MARTIN sv Administered Medications: 10:28 Drug: NS 0.9% 500 ml Route: IV; Rate: bolus; Site: left antecubital; sv 11:15 Follow up: Response: No adverse reaction; IV Status: Completed infusion; IV Intake: sv 500ml 14:23 Drug: NS 0.9% 1000 ml Route: IV; Rate: 100 ml/hr; Site: left antecubital; sv 15:01 Follow up: Response: No adverse reaction; IV Status: Infusion continued upon admission sv 14:24 Drug: Decadron - Dexamethasone 10 mg Route: IVP; Site: left antecubital; sv 15:01 Follow up: Response: No adverse reaction sv Intake: 11:15 IV: 500ml; Total: 500ml. sv Output: 12:36 Urine: 250ml (Voided); Total: 250ml. sv 14:42 Urine: 200ml (Voided); Total: 450ml. sv Outcome: 13:12 Decision to Hospitalize by Provider. rn 15:00 Admitted to ER Hold. Please see [facility] for further documentation. sv 15:00 Condition: stable 15:00 Instructed on the need for admit. 12 16:42 Patient left the ED. iw Signatures: Dispatcher [employer] Angelia Gonsalez RN RN sv Williams, Irene, RN RN Dc Vargas MD MD rn Smirch, Shelby, RN RN Yessica Guo 3 Corrections: (The following items were deleted from the chart) 12 10:29 09:59 Initial Sepsis Screen: Does the patient meet any 2 criteria? No. Patient's ss initial sepsis screen is negative. Does the patient have a suspected source of infection? No. Patient's initial sepsis screen is negative. ss 10:36 10:33 BP 128 / 71; Pulse 85bpm; Resp 24bpm; Pulse Ox 96% RA; sv sv
[2020-06-22] MEDS ORDERED: dexAMETHasone 10 MG/ML VIAL ONE (14:14)
[2020-06-22] MEDS ORDERED: NA CHLORIDE 0.9% 1,000 ML ONE (14:17)
[2020-06-22] MEDS ORDERED: ONDANSETRON 4 MG/2 ML VIAL IV PRN (14:35)
[2020-06-22] MEDS ORDERED: ACETAMINOPHEN 500 MG TAB PO PRN (14:35)
[2020-06-22] MEDS ORDERED: NA CHLORIDE 0.9% 1,000 ML IV SCH (15:00)
[2020-06-22 16:02] VITALS: BMI 31.6
[2020-06-22 17:36] LABS: Albumin 2.6 g/dL (3.4-5.0); Bilirubin Direct 0.2 mg/dL (0-0.2); Bilirubin Total 0.6 mg/dL (0.2-1.0); Magnesium 2.2 mg/dL (1.8-2.4); Protein, Total 5.9 g/dL (6.4-8.2); T3 Free 1.27 pg/mL (2.18-3.98); T4,Total 9.4 ug/dL (4.5-12.1); Thyroid Stimulating Hormone 1.1 uIU/mL (0.360-3.740)
--- NOTE | 2020-06-22 19:04 | P.CNS ---
Date of Consult: 06/22/20 Reason for Consult: [place] virus infection Chief Complaint: Week febrile History of Present Illness: Patient is 85 years of age tested positive for montgomery virus on Tuesday he reports decreased appetite dehydrated some fever denies any shortness of breath came in was admitted from the emergency room he feels fine little weak Allergies No Known Allergies Allergy (Unverified 08/21/19 19:34) Home Medications: Amlodipine [Norvasc] 10 mg PO DAILY 06/22/20 Gabapentin [Neurontin*] 400 mg PO TID 06/22/20 - Past Medical/Surgical History Diabetic: No -: Back pain -: Hypertension -: Hypothyroidism -: Depressive disorder -: Hearing loss -: Anxiety disorder -: Hypercholesterolemia -: GERD -: Faust's palsy -: Hypothyroidism -: BPH -: Peripheral neuropathy - Family History Father Medical History: Heart disease Mother Medical History: Heart disease - Social History Alcohol use: No CD- Drugs: No Caffeine use: No Review of Systems 10-point ROS is otherwise unremarkable General: Fever, Weakness Physical Examination Temp Pulse Resp BP Pulse Ox 98.1 F 88 19 148/89 H 96 06/22/20 16:00 06/22/20 16:00 06/22/20 16:00 06/22/20 16:00 06/22/20 16:00 General: Alert, In no apparent distress, Oriented x3 Respiratory: Clear to auscultation bilaterally Cardiovascular: No edema, Normal S1 S2 Laboratory Data (last 24 hrs) 06/22/20 11:48: Magnesium 2.2, Total Bilirubin 0.6, AST 37, ALT 48, Alkaline Phosphatase 63 06/22/20 11:48: Sodium 138, Potassium 3.6, BUN 14, Creatinine 0.99, Glucose 106 06/22/20 10:20: WBC 10.4, Hgb 15.8, Hct 45.9, Plt Count 245 - Problems (1) Infection due to 2019 novel coronavirus Current Visit: Yes Status: Acute Plan: Patient is 85 years of age a recently diagnosed with montgomery virus infection admitted feeling weak vital signs are all stable oxygenation satisfactory chest x-ray minimal changes labs reviewed BNP is mildly elevated plan for discharge tomorrow low-dose prednisone 10 mg twice a day for a week and and ask for
--- NOTE | 2020-06-22 20:06 | P.HP ---
Certification for Inpatient Patient admitted to: Observation With expected LOS: <2 Midnights Patient will require the following post-hospital care: None Practitioner: I am a practitioner with admitting privileges, knowledge of patient current condition, hospital course, and medical plan of care. Services: Services provided to patient in accordance with Admission requirements found in Title 42 Section 412.3 of the Code of Federal Regulations Patient History Date of Service: 06/22/20 Reason for admission: Patient with generalized weakness and shortness of breath History of Present Illness: Patient is a very pleasant 85-year-old gentleman who came into the hospital because he felt like his kidneys were failing. Patient states that he was diagnosed with COVID-19 pneumonia approximately 2 weeks ago. He states that he has been feeling really weak, and he got really worse around . He has not really been able to eat or drink much of anything. He felt like his kidneys were failing so he came into the emergency room for further evaluation. In the emergency room, patient was found have bilateral pneumonia. Patient's renal function did not display any abnormality. Patient did have arrhythmia as it was having bigeminy and PVCs. Patient did not have any electrolyte abnormalities. Patient did have an echocardiogram in August that did not reveal any abnormality he was found to have the same rhythm issues and he has been followed up by Cardiology. At this time his cardiac status is stable and he needs no further cardiac workup.. Allergies No Known Allergies Allergy (Unverified 08/21/19 19:34) Home Medications: Amlodipine [Norvasc] 10 mg PO DAILY 06/22/20 Gabapentin [Neurontin*] 400 mg PO TID 06/22/20 - Past Medical/Surgical History Has patient received pneumonia vaccine in the past: No Diabetic: No -: Back pain -: Hypertension -: Hypothyroidism -: Depressive disorder -: Hearing loss -: Anxiety disorder -: Hypercholesterolemia -: GERD -: Faust's palsy -: BPH -: Peripheral neuropathy Past Surgical History: Patient denies surgical history - Family History Father Medical History: Heart disease Mother Medical History: Heart disease - Social History Smoking Status: Former smoker Alcohol use: No CD- Drugs: No Caffeine use: No Review of Systems 10-point ROS is otherwise unremarkable Physical Examination - Vital Signs Temperature: 98.1 F Blood Pressure: 148/89 Pulse: 88 Respirations: 19 Pulse Ox (%): 96 - Physical Exam General: Alert, In no apparent distress, Oriented x3 HEENT: Atraumatic, PERRLA, Mucous membr. moist/pink, EOMI, Sclerae nonicteric Neck: Supple, 2+ carotid pulse no bruit, No LAD, Without JVD or thyroid abnormality Respiratory: Diminished, Rhonchi/gurgles Cardiovascular: Other (Arrhythmias with occasional PVCs) Gastrointestinal: Normal bowel sounds, Soft and benign, Non-distended, No tenderness Musculoskeletal: No clubbing, No swelling, No tenderness Integumentary: No rashes Neurological: Normal strength at 5/5 x4 extr, Sensation intact, Cranial nerves 3-12 intact - Studies Laboratory Data (last 24 hrs) 06/22/20 11:48: Magnesium 2.2, Total Bilirubin 0.6, AST 37, ALT 48, Alkaline Phosphatase 63 06/22/20 11:48: Sodium 138, Potassium 3.6, BUN 14, Creatinine 0.99, Glucose 106 06/22/20 10:20: WBC 10.4, Hgb 15.8, Hct 45.9, Plt Count 245 Assessment & Plan - Problems (Diagnosis) (1) Pneumonia due to COVID-19 virus Current Visit: Yes Status: Acute (2) Ventricular bigeminy Current Visit: Yes Status: Acute (3) PVCs (premature ventricular contractions) Current Visit: No Status: Acute (4) Hypothyroidism Current Visit: No Status: Chronic (5) Hypertension Current Visit: Yes Status: Acute Qualifiers: Hypertension type: essential hypertension Qualified Code(s): I10 - Essential (primary) hypertension - Plan 1. Continue with IV steroids 2. Awaiting cultures 3. Repeat chest x-ray 4. Appreciate pulmonary consultation 5. Inhaler therapy as needed 6. O2 per protocol 7. Continue with gentle hydration 8. Monitor patient's electrolytes 9. GI and DVT prophylaxis Discharge Plan: Home Plan to discharge in: 48 Hours - Advance Directives Does patient have a Living Will: No Does patient have a Durable POA for Healthcare: Yes - Code Status/Comfort Care Code Status Assessed: Yes Code Status: Full Code Critical Care: No Time Spent Managing PTS Care (In Minutes): 40
[2020-06-22] MEDS: NA CHLORIDE 0.9% 1,000 ML IV SCH (20:14)
[2020-06-22] MEDS ORDERED: METHYLPREDNISOLONE 40 MG INJ ONE (20:23)
[2020-06-22] MEDS: APIXABAN 5 MG TABLET PO SCH (21:00)
[2020-06-22] MEDS: METHYLPREDNISOLONE 40 MG INJ IV SCH (21:00)
[2020-06-22] MEDS ORDERED: METHYLPREDNISOLONE 40 MG INJ IV SCH (21:00)
[2020-06-22] MEDS: GABAPENTIN 400 MG CAP PO SCH (21:00)
[2020-06-22] MEDS ORDERED: ESZOPICLONE 1 MG TAB PO PRN (23:47)
[2020-06-23] MEDS ORDERED: ESZOPICLONE 1 MG TAB ONE (00:25)
[2020-06-23 03:51] LABS: Absolute Lymphocytes (CBC) 0.6 K/uL (0.7-4.9); Basophils % 0.5 % (0-1.3); Hematocrit 41.1 % (39.6-49.0); Lymphocytes % 8.6 % (15.3-44.8); MPV 8.5 fL (7.6-11.3)
[2020-06-23 04:10] LABS: Albumin 2.5 g/dL (3.4-5.0); Bilirubin Total 0.5 mg/dL (0.2-1.0); C-Reactive Protein 14.1 mg/L (<3.00); Ferritin 301.2 ng/mL (26-388); Potassium 3.5 mmol/L (3.5-5.1)
[2020-06-23 05:05] LABS: Blood Morphology Comment NOT SEEN (NOT SEEN); Platelet Estimate ADEQ
--- NOTE | 2020-06-23 08:21 | P.DS ---
Admission Date: 06/22/20 Discharge Date: 06/23/20 [facility] Care Provider: [facility] Disposition: ROUTINE DISCHARGE Discharge Condition: GOOD Reason for Admission: Patient with generalized weakness and shortness of breath Consultations: Pulmonary-Dr. Kong Procedures: CXR: COMPARISON: Chest Single View dated 08/21/2019 FINDINGS: Portable technique limits examination quality. Mild interstitial opacities are seen along the periphery of both lungs suggesting mild bilateral bronchitis. The heart is moderately prominent in size with a tortuous thoracic aorta. No displaced fractures. ECHO: EF 68% LEFT VENTRICULAR WALL MOTION: NORMAL. DOPPLER/COLOR FLOW: MILD AORTIC, MITRAL AND TRICUSPID REGURGITATION. NORMAL RIGHT VENTRICULAR SYSTOLIC PRESSURE. NO AORTIC STENOSIS. COMMENTS: NORMAL LEFT VENTRICULAR EJECTION FRACTION. AORTIC SCLEROSIS WITH NO AORTIC STENOSIS. MILD AORTIC, MITRAL AND TRICUSPID REGURGITATION. Medical Problem List: Dyspnea secondary to bilateral COVID 19 pneumonia Atrial fibrillation with Ventricular bigeminy and PVCs Hypertension Neuropathy Brief History of Present Illness: 85-year-old male with history of hypertension presented to the emergency room with shortness of breath. Patient was diagnosed with COVID 19 about 2 weeks ago. He was not improving. Patient came to the ER for further evaluation. Patient found to have bilateral COVID 19 pneumonia. Patient required hospitalization. Patient had some bigeminy and PVC. No electrolyte abnormalities noted. Echocardiogram done in August 2019 was unremarkable. Hospital Course: Patient presented with dyspnea secondary to Bilateral COVID 19 pneumonia. Franca ent was admitted for further evaluation and treatment. The patient has done well during the course of his stay. Patient was seen by pulmonology. Patient received IV steroids. At discharge patient without the need for oxygen. Patient without significant shortness of breath. Pulmonology recommends discharge at this time. Patient will continue with prednisone 10 mg 1 pill twice daily for 1 week then once daily for 1 week. Patient will also continue with vitamin-D 1 pill daily, vitamin-C 1 pill daily. Due to his risk factors. Pulmonology also recommends anti coagulation therapy due to his COVID 19 diagnosis. Patient will continue with Eliquis 5 mg 1 pill twice daily for at least 1 month. Education on Eliquis will be provided. Education on COVID 19 isolation will be provided. Patient will continue with COVID 19 instructions on facemask use, hand washing and social distancing. Recommend follow up with pulmonology within 1 week to follow up this hospitalization and continue his care. Patient was found to have some ventricular bigeminy with PVCs. No electrolyte abnormalities noted. Patient appeared stable. Patient was seen in August for this by Cardiology. Echocardiogram done at that time was unremarkable. Patient has done well. Patient with underlying hypertension. Patient takes Norvasc 10 mg daily. In August cardiology recommended follow up as an outpatient to further evaluate. Unsure whether this has occurred.. Cardiology was consulted to further evaluate during the course of his stay. Patient was also started on Eliquis due to his COVID 19 infection. Patient also was given metoprolol 12.5 mg 1 pill twice daily. At discharge patient will continue with Norvasc 10 mg daily, metoprolol 12.5 mg twice daily and Eliquis 5 mg 1 pill twice daily. Katalina mahmood follow up with cardiology in 1-2 weeks to follow up this hospitalization. Education on metoprolol and Eliquis will be provided. Education on atrial fibrillation will also be provided. Repeat ECHO was normal. Patient with neuropathy. Patient may continue with Neurontin 400 mg 3 times a day. Recommend follow up with PCP to further monitor and address. Vital Signs/Physical Exam: Temp Pulse Resp BP Pulse Ox 99.7 F 89 17 136/89 97 06/23/20 07:54 06/23/20 07:54 06/23/20 07:54 06/23/20 07:54 06/23/20 07:54 General: Alert, In no apparent distress, Oriented x3, Cooperative HEENT: Atraumatic Neck: Supple Respiratory: Other (Patient breathing appropriately. 97% on room air) Cardiovascular: Normal pulses Gastrointestinal: No tenderness, No masses, No rebound, No guarding Musculoskeletal: No erythema, No tenderness, No warmth Integumentary: No tenderness/swelling, No erythema, No warmth, No cyanosis Neurological: Normal speech, Normal strength at 5/5 x4 extr, Normal tone, Normal affect Laboratory Data at Discharge: WBC 6.6 K/uL (4.3-10.9) D 06/23/20 03:21 Hgb 14.3 g/dL (13.6-17.9) 06/23/20 03:21 Hct 41.1 % (39.6-49.0) 06/23/20 03:21 Plt Count 238 K/uL (152-406) 06/23/20 03:21 Sodium 136 mmol/L (136-145) 06/23/20 03:21 Potassium 3.5 mmol/L (3.5-5.1) 06/23/20 03:21 BUN 15 mg/dL (7-18) 06/23/20 03:21 Creatinine 0.93 mg/dL (0.55-1.3) 06/23/20 03:21 Glucose 145 mg/dL (74-106) H 06/23/20 03:21 Magnesium 2.2 mg/dL (1.8-2.4) 06/22/20 11:48 Total Bilirubin 0.5 mg/dL (0.2-1.0) 06/23/20 03:21 AST 41 U/L (15-37) H 06/23/20 03:21 ALT 55 U/L (12-78) 06/23/20 03:21 Alkaline Phosphatase 77 U/L (45-117) 06/23/20 03:21 Triglycerides 73 mg/dL (<150) 06/23/20 03:21 Cholesterol 130 mg/dL (<200) 06/23/20 03:21 HDL Cholesterol 47 mg/dL (40-60) 06/23/20 03:21 Cholesterol/HDL Ratio 2.77 06/23/20 03:21 Home Medications: Amlodipine [Norvasc*] 10 mg PO DAILY 06/22/20 Gabapentin [Neurontin*] 400 mg PO TID 06/22/20 Apixaban [Eliquis] 5 mg PO BID #60 tablet 06/23/20 Ascorbate Calcium [Vitamin C] 500 mg PO DAILY #30 tablet 06/23/20 Cholecalciferol (Vitamin D3) [Vitamin D 1000 Iu Tab] 1,000 unit PO DAILY #30 tab 06/23/20 Metoprolol Tartrate [Lopressor*] 12.5 mg PO BID #60 tab 06/23/20 predniSONE [Deltasone*] 10 mg PO SEECOM #21 tab 06/23/20 New Medications: predniSONE [Deltasone*] 10 mg PO SEECOM #21 tab Apixaban [Eliquis] 5 mg PO BID #60 tablet Metoprolol Tartrate [Lopressor*] 12.5 mg PO BID #60 tab Ascorbate Calcium [Vitamin C] 500 mg PO DAILY #30 tablet Cholecalciferol (Vitamin D3) [Vitamin D 1000 Iu Tab] 1,000 unit PO DAILY #30 tab Patient Discharge Instructions: 1. Recommend follow up with PCP in 1 week to f jacksonlow up this hospitalization. 2. Patient presented with dyspnea secondary to Bilateral COVID 19 pneumonia. Patient was admitted for further evaluation and treatment. The patient has done well during the course of his stay. Patient was seen by pulmonology. Patient received IV steroids. At discharge patient without the need for oxygen. Patient without significant shortness of breath. Pulmonology recommends discharge at this time. Patient will continue with prednisone 10 mg 1 pill twice daily for 1 week then once daily for 1 week. Patient will also continue with vitamin-D 1 pill daily, vitamin-C 1 pill daily. Due to his risk factors. Pulmonology also recommends anti coagulation therapy due to his COVID 19 diagnosis. Patient will continue with Eliquis 5 mg 1 pill twice daily for at least 1 month. Education on Eliquis will be provided. Education on COVID 19 isolation will be provided. Patient will continue with COVID 19 instructions on facemask use, hand washing and social distancing. Recommend follow up with pulmonology within 1 week to follow up this hospitalization and continue his care. 3. Patient was found to have some ventricular bigeminy with PVCs. No electrolyte abnormalities noted. Patient appeared stable. Patient was seen in August for this by Cardiology. Echocardiogram done at that time was unremarkable. Patient has done well. Patient with underlying hypertension. Patient takes Norvasc 10 mg daily. In August cardiology recommended follow up as an outpatient to further evaluate. Unsure whether this has occurred.. Cardiology was consulted to further evaluate during the course of his stay. Patient was also started on Eliquis due to his COVID 19 infection. Patient also was given metoprolol 12.5 mg 1 pill twice daily. At discharge patient will continue with Norvasc 10 mg daily, metoprolol 12.5 mg twice daily and Eliquis 5 mg 1 pill twice daily. Recommend follow up with cardiology in 1-2 weeks to follow up this hospitalization. Education on metoprolol and Eliquis will be provided. Education on atrial fibrillation will also be provided. Repeat ECHO is normal per Cardiology. 4. Patient with neuropathy. Patient may continue with Neurontin 400 mg 3 times a day. Recommend follow up with PCP to further monitor and address. Diet: AHA Activity: Ad raf Followup: Unknown,U [Primary Care Provider] - Time spent managing pt's care (in minutes): 55
[2020-06-23] MEDS ORDERED: AMLODIPINE 10 MG TAB ONE (08:34)
[2020-06-23] MEDS ORDERED: ACETAMINOPHEN 500 MG TAB ONE (08:34)
[2020-06-23] MEDS ORDERED: METHYLPREDNISOLONE 40 MG INJ ONE (08:35)
[2020-06-23] MEDS: GABAPENTIN 400 MG CAP PO SCH ×2 (08:36→14:00)
[2020-06-23] MEDS ORDERED: METOPROLOL TAR 25 MG TAB PO SCH (08:36)
[2020-06-23] MEDS: METHYLPREDNISOLONE 40 MG INJ IV SCH (08:37)
[2020-06-23] MEDS ORDERED: ASCORBIC ACID 500 MG TABLET PO SCH (09:00)
[2020-06-23] MEDS: APIXABAN 5 MG TABLET PO SCH (09:00)
[2020-06-23] MEDS ORDERED: AMLODIPINE 10 MG TAB PO SCH (09:00)
[2020-06-23] MEDS ORDERED: VITAMIN D 1000 UNIT TAB PO SCH (09:00)
[2020-06-23] MEDS ORDERED: ASCORBIC ACID 500 MG TABLET ONE (09:45)
[2020-06-23] MEDS ORDERED: METOPROLOL TAR 25 MG TAB ONE (09:46)
[2020-06-23] MEDS: NA CHLORIDE 0.9% 1,000 ML IV SCH (12:55)
[2020-06-23 13:02] VITALS: O2SAT 96
[2020-06-23 17:00] VITALS: BP 141/78; TEMP 99.4
--- NOTE | 2020-06-23 20:23 | CON ---
Date of Consultation: 06/23/2020 Reason For Consultation: Atrial fibrillation. History Of Present Illness: This is an 85-year-old male, who presented to the emergency room with co ugh, shortness of breath, found to have COVID-19 pneumonia, diagnosed about 2 weeks ago and feeling w eak in the emergency room, was found to be in atrial fibrillation, rate is controlled. He is having some PVCs versus aberrantly conducted beats. He is asymptomatic, does not have any chest pain. Past Medical History: As outlined above in the HPI. Medications: Refer to reconciliation sheet for detailed list. Allergies: NO KNOWN DRUG ALLERGIES. Social History: Does not smoke or drink. Does not use any drugs. Review of Systems: All systems reviewed and they were negative except for mentioned in the HPI. Physical Examination: Vital Signs: Temperature is 99.9, pulse 97, breathing at 18, blood pressure 141/84, saturating 97% o n room air. General: Pleasant elderly male, in no distress. Head and Neck: Pupils are equal, react to light. Intact eye movements. No JVD. No cervical lympha denopathy. Neck: Supple. Thyroid is not enlarged. Lungs: Clear to auscultation bilaterally. No rhonchi, rales, or crackles. No accessory muscle use. Heart: Regular rate and rhythm. No extra sounds. Abdomen: Soft, nontender. Bowel sounds positive. No organomegaly. No masses or hernia. No rigidi ty or rebound. Extremities: No edema, clubbing, or cyanosis. Intact pulses. Skin: No rash. Neurologic: Alert, awake, oriented x3. No acute focal deficits appreciated. Investigations: Labs were reviewed. Assessment And Recommendation: Atrial fibrillation. Rate is controlled. Agree to start Eliquis 5 m g twice a day and metoprolol 25 mg twice a day. We did an echo on him and his ejection fraction is n ormal. It is okay to discharge the patient, have him follow up with us as an outpatient, and to furt her manage his atrial fibrillation. SR/MODL Voice ID: [id number] Report ID: [id number]
--- NOTE | 2020-06-24 09:51 | ECHO ---
HEIGHT: 6 ft 1 in WEIGHT: 240 lb 0 oz DATE OF STUDY: 06/23/[address]: Michael Kurtz DO 2-DIMENSIONAL: YES M.MODE: YES DOPPLER: YES COLOR FLOW: YES TDS: NO PORTABLE: NO DEFINITY: NO BUBBLE STUDY: NO DIAGNOSIS: ATRIAL FIBRILLATION WITH RAPID VENTRICULAR RESPONSE CARDIAC HISTORY: CATHERIZATION: NO SURGERY: NO PROSTHETIC VALVE: NO PACEMAKER: NO MEASUREMENTS (cm) DIASTOLIC (NORMALS) SYSTOLIC (NORMALS) IVSd 1.2 (0.6-1.2) LA Diam 4.7 (1.9-4.0) LVEF 67% LVIDd 4.2 (3.5-5.7) LVIDs 2.7 (2.0-3.5) %FS 37% LVPWd 1.3 (0.6-1.2) Ao Diam 3.3 (2.0-3.7) 2 DIMENSIONAL ASSESSMENT: RIGHT ATRIUM: NORMAL LEFT ATRIUM: ENLARGED RIGHT VENTRICLE: NORMAL LEFT VENTRICLE: NORMAL TRICUSPID VALVE: MITRAL VALVE: PULMONIC VALVE: NORMAL AORTIC VALVE: PERICARDIAL EFFUSION: NONE AORTIC ROOT: NORMAL LEFT VENTRICULAR WALL MOTION: NORMAL DOPPLER/COLOR FLOW: NORMAL COMMENTS: NORMAL LEFT VENTRICULAR EJECTION FRACTION 55-60% WITH NORMAL WALL MOTION. MILD MITRAL, TRICUSPID AND AORTIC REGURGITATION. TECHNOLOGIST: Antonia TERRY
== END 2020-06-23 15:35 | disposition home or self-care (01) ==
LOC: ER 09:53 → INTOOBSV 14:36 → ERHOLD 14:36
PROVIDERS: ADMIT Hospitalist; ATTEND Family Medicine
DX: U07.1 COVID-19 (principal); I48.91 Unspecified atrial fibrillation; J12.89 Other viral pneumonia; I10 Essential (primary) hypertension; G62.9 Polyneuropathy, unspecified; I49.3 Ventricular premature depolarization; E03.9 Hypothyroidism, unspecified; F32.9 Major depressive disorder, single episode, unspecified; H91.90 Unspecified hearing loss, unspecified ear; F41.9 Anxiety disorder, unspecified; E78.00 Pure hypercholesterolemia, unspecified; K21.9 Gastro-esophageal reflux disease without esophagitis; N40.0 Benign prostatic hyperplasia without lower urinary tract symptoms; Z87.891 Personal history of nicotine dependence; R94.31 Abnormal electrocardiogram [ECG] [EKG]
CPT/HCPCS: 36415; 71045; 80048; 80053; 80061; 80076; 81003; 81015; 82550; 82553; 82728; 83735; 83880; 84436; 84439; 84443; 84480; 84481; 85025; 85379; 86140; 87040; 93005; 93306; 96361; 96374; 99285; G0378; J1100; J2920; J7030; J7040

== ENCOUNTER 2020-09-09 14:30 | Emergency (ER) | payer OTHER ==
--- NOTE | 2020-09-09 15:50 | RAD REPORT ---
EXAM DESCRIPTION: CT - Thorax Wo Con - 09/09/2020 3:34 pm CLINICAL HISTORY: PAIN, slip and fall, left-sided chest and rib pain COMPARISON: No comparisons TECHNIQUE: Axial 5 mm thick images of the chest were obtained without IV contrast. All CT scans are performed using dose optimization technique as appropriate and may include automated exposure control or mA/KV adjustment according to patient size. FINDINGS: Fibrotic lung changes are present most notable in each lung base. No pulmonary contusion s een. No focal infiltrate or mass. No pneumothorax or pleural fluid collection. No abnormal mediastinal or hilar masses or lymphadenopathy seen. No gross aortic or pulmonary artery finding suspected. Assessment is limited in the absence of IV contrast. No pericardial effusion. Nondisplaced fracture of the left sixth rib is present along the lateral margin. There is questionabl e nondisplaced fracture of the fifth rib. No pathologic rib changes. Upper abdomen imaging shows no splenic injury. IMPRESSION: Nondisplaced fracture of the lateral left sixth rib with questionable nondisplaced fifth rib fracture. No pulmonary contusion, pneumothorax or other significant finding.
--- NOTE | 2020-09-09 16:10 | EDPHYS ---
Physician Documentation [facility] Name: Jared Canseco Age: 85 yrs Sex: Male : 1935 Arrival Date: 09/09/2020 Time: 14:31 Bed 6 Private MD: ED Physician Edin Macedo HPI: 09/09 18:57 This 85 yrs old Male presents to ER via Ambulatory with complaints of Fall kb Injury - Rib Pain. 18:57 Onset: The symptoms/episode began/occurred 5 day(s) ago. Associated injuries: The kb patient sustained injury to the chest, specifically the left lateral anterior chest, pain with movement. Severity of symptoms: At their worst the symptoms were moderate, in the emergency department the symptoms have improved, moderately. The patient has not experienced similar symptoms in the past. The patient has not recently seen a physician. 18:59 Details of fall: The patient fell from an upright position, while walking. Pt reports kb he was turning off the water valve and slipped on the ice last week. States he has been having left rib pain since then. Came in today just to make sure there wasn't anything that needed to be done. . Historical: - Allergies: 14:34 No Known Allergies; ll1 - PMHx: 14:34 Anxiety; Depression; GERD; Hypertension; Thyroid problem; ll1 - PSHx: 14:34 None; ll1 - Immunization history:: Flu vaccine is up to date. - Social history:: Smoking status: Patient denies any tobacco usage or history of. ROS: 18:55 Constitutional: Negative for fever, chills, and weight loss, Eyes: Negative for injury, kb pain, redness, and discharge, Respiratory: Negative for shortness of breath, cough, wheezing, and pleuritic chest pain, Abdomen/GI: Negative for abdominal pain, nausea, vomiting, diarrhea, and constipation, Back: Negative for injury and pain, : Negative for injury, bleeding, discharge, and swelling, MS/Extremity: Negative for injury and deformity, Skin: Negative for injury, rash, and discoloration, Neuro: Negative for headache, weakness, numbness, tingling, and seizure. 18:55 Cardiovascular: Positive for chest pain, with cough, with movement, of the left lateral anterior chest. Exam: 18:55 Constitutional: This is a well developed, well nourished patient who is awake, alert, kb and in no acute distress. Head/Face: Normocephalic, atraumatic. Cardiovascular: Regular rate and rhythm with a normal S1 and S2. No gallops, murmurs, or rubs. Normal PMI, no JVD. No pulse deficits. Respiratory: Lungs have equal breath sounds bilaterally, clear to auscultation and percussion. No rales, rhonchi or wheezes noted. No increased work of breathing, no retractions or nasal flaring. Abdomen/GI: Soft, non-tender, with normal bowel sounds. No distension or tympany. No guarding or rebound. No evidence of tenderness throughout. Skin: Warm, dry with normal turgor. Normal color with no rashes, no lesions, and no evidence of cellulitis. MS/ Extremity: Pulses equal, no cyanosis. Neurovascular intact. Full, normal range of motion. 18:55 Chest/axilla: Inspection: normal, Palpation: tenderness, that is moderate, of the left lateral anterior chest, that totally reproduces the patient's complaints, Axilla: are normal. 18:55 Neuro: Orientation: is normal, to person, place, time \T\ situation. Mentation: is normal, able to follow commands, Motor: is normal, moves all fours, Sensation: is normal, Gait: is steady, without difficulty. Vital Signs: 14:36 BP 120 / 85; Pulse 65; Resp 17; Temp 98.3; Pulse Ox 98% on R/A; Weight 108.86 kg; ll1 Height 6 ft. 2 in. (187.96 cm); Pain 5/10; 16:20 BP 118 / 78; Pulse 67; Resp 18; Temp 97.9; Pulse Ox 99% on R/A; ph 14:36 Body Mass Index 30.81 (108.86 kg, 187.96 cm) ll1 MDM: 15:08 Patient medically screened. [facility] 18:55 Data reviewed: vital signs, nurses notes. Data interpreted: Pulse oximetry: on room air kb is 99 %. Interpretation: normal. Counseling: I had a detailed discussion with the patient and/or guardian regarding: the historical points, exam findings, and any diagnostic results supporting the discharge/admit diagnosis, radiology results, the need for outpatient follow up, a family practitioner, to return to the emergency department if symptoms worsen or persist or if there are any questions or concerns that arise at home. 09/09 14:53 Order name: CT Chest Wo Con; Complete Time: 15:52 kb Administered Medications: No medications were administered Disposition: 09/10 07:59 Co-signature as Attending Physician, Edin Macedo MD I agree with the assessment and bradley plan of care. Disposition: 09/09/20 16:09 Discharged to Home. Impression: Multiple fractures of ribs, left side. - Condition is Stable. - Discharge Instructions: Rib Fracture, [id number]. - Prescriptions for Tramadol 50 mg Oral Tablet - take 1 tablet by ORAL route every 8 hours as needed; 12 tablet. - Medication Reconciliation Form, Thank You Letter, Antibiotic Education, Prescription Opioid Use form. - Follow up: Emergency Department; When: As needed; Reason: Worsening of condition. Follow up: Private Physician; When: 2 - 3 days; Reason: Recheck today's complaints, Continuance of care, Re-evaluation by your physician. Signatures: Dispatcher [employer] EDSheri Farrell, DICTAPHONE MECHANIC-C DICTAPHONE MECHANIC-Edin Garduno MD MD cha Hall, Patricia, RN RN ph Brittney Alexandra RN RN ll1 Corrections: (The following items were deleted from the chart) 09/09 16:21 16:09 09/09/2020 16:09 Discharged to Home. Impression: Multiple fractures of ribs, left ph side. Condition is Stable. Forms are Medication Reconciliation Form, Thank You Letter, Antibiotic Education, Prescription Opioid Use. Follow up: Emergency Department; When: As needed; Reason: Worsening of condition. Follow up: Private Physician; When: 2 - 3 days; Reason: Recheck today's complaints, Continuance of care, Re-evaluation by your physician. kb
--- NOTE | 2020-09-09 16:10 | ER ---
Nurse's Notes [facility] Name: Jared Canseco Age: 85 yrs Sex: Male : 1935 Arrival Date: 09/09/2020 Time: 14:31 Bed 6 Private MD: Diagnosis: Multiple fractures of ribs, left side Presentation: 09/09 14:36 Chief complaint: Patient states: Fell Tuesday or Tuesday while trying to turn off the 1 water. Left rib cage pain set in 2 days later. + pain with cough. Coronavirus screen: Client denies travel out of the [place] in the last 14 days. At this time, the client does not indicate any symptoms associated with coronavirus-19. Ebola Screen: Patient denies travel to an Ebola-affected area in the 21 days before illness onset. Initial Sepsis Screen: Does the patient meet any 2 criteria? No. Patient's initial sepsis screen is negative. Does the patient have a suspected source of infection? Yes: Bone or joint infection. Risk Assessment: Do you want to hurt yourself or someone else? Patient reports no desire to harm self or others. Onset of symptoms was September 05, 2020. 14:36 Method Of Arrival: Ambulatory [facility] 14:36 Acuity: ANTONIO 3 ll1 Historical: - Allergies: 14:34 No Known Allergies; ll1 - PMHx: 14:34 Anxiety; Depression; GERD; Hypertension; Thyroid problem; ll1 - PSHx: 14:34 None; ll1 - Immunization history:: Flu vaccine is up to date. - Social history:: Smoking status: Patient denies any tobacco usage or history of. Screenin:23 Abuse screen: Denies threats or abuse. Denies injuries from another. Nutritional ph screening: No deficits noted. Tuberculosis screening: No symptoms or risk factors identified. Fall Risk None identified. Assessment: 15:22 General: Appears in no apparent distress. Behavior is calm, cooperative, appropriate ph for age. Pain: Complains of pain in left lateral anterior chest. Neuro: Level of Consciousness is awake, alert, obeys commands, Oriented to person, place, time, situation. Cardiovascular: Capillary refill < 3 seconds in bilateral fingers Patient's skin is warm and dry. Respiratory: Reports pain with cough pain with movement pain with respiration Airway is patent Respiratory effort is even, unlabored, Denies shortness of breath. Derm: Skin is intact, Skin is pink, warm \T\ dry. Musculoskeletal: Circulation, motion, and sensation intact. Range of motion: intact in all extremities. 15:27 Reassessment: Pt taken to CT via stretcher. ph Vital Signs: 14:36 BP 120 / 85; Pulse 65; Resp 17; Temp 98.3; Pulse Ox 98% on R/A; Weight 108.86 kg; ll1 Height 6 ft. 2 in. (187.96 cm); Pain 5/10; 16:20 BP 118 / 78; Pulse 67; Resp 18; Temp 97.9; Pulse Ox 99% on R/A; ph 14:36 Body Mass Index 30.81 (108.86 kg, 187.96 cm) ll1 ED Course: 14:31 Patient arrived in ED. ds1 14:33 Arm band placed on. ll1 14:38 Triage completed. ll1 14:53 Sheri Turner FNP-C is [facility]. kb 14:53 Edin Macedo MD is Attending Physician. kb 15:22 Barbara Cifuentes, RN is Primary Nurse. ph 15:23 Patient has correct armband on for positive identification. Bed in low position. Call ph light in reach. Side rails up X 1. Pulse ox on. NIBP on. Door closed. Noise minimized. Warm blanket given. 15:34 CT Chest Wo Con In Process Unspecified. EDMS 16:20 No provider procedures requiring assistance completed. Patient did not have IV access ph during this emergency room visit. Administered Medications: No medications were administered Outcome: 16:09 Discharge ordered by . kb 16:20 Discharged to home ambulatory. ph 16:20 Condition: good 16:20 Discharge instructions given to patient, Instructed on discharge instructions, follow up and referral plans. medication usage, Demonstrated understanding of instructions, follow-up care, medications, Prescriptions given X 1. 16:21 Patient left the ED. ph Signatures: Dispatcher [employer] EDMS Sheri Turner FNP-C FNP-Rizwana Davis ds1 Barbara Cifuentes, RN MARTIN Brittney Alexandra RN RN [facility]
[2020-09-09 16:33] VITALS: BP 118/78; TEMP 97.9; O2SAT 99
== END 2020-09-09 16:21 | disposition home or self-care (01) ==
LOC: ER 14:30
DX: S22.42XA Multiple fractures of ribs, left side, initial encounter for closed fracture (principal); W00.0XXA Fall on same level due to ice and snow, initial encounter; Y93.89 Activity, other specified; Y92.009 Unspecified place in unspecified non-institutional (private) residence as the place of occurrence of the external cause; I10 Essential (primary) hypertension
CPT/HCPCS: 71250; 99283